=== PATIENT | male | born 1955 | race Caucasian/White ===

== ENCOUNTER 2017-08-06 11:28 | Outpatient (CLI) | payer OTHER | END 2017-08-06 19:50 | disposition home or self-care (01) | LOC: D.OPS 11:28 | DX: D50.9 Iron deficiency anemia, unspecified (principal); C22.0 Liver cell carcinoma ==

== ENCOUNTER 2017-10-21 11:13 | Day surgery (SDC) | payer OTHER ==
[~2017-10-21] VITALS: Ht 170.2 cm; Wt 59.1 kg
--- NOTE | ~2017-10-21 | OP ---
PATIENT NAME: JEREMY BURRIS MEDICAL RECORD: [id number] :55 [facility] AD[facility] DATE: SURGEON: CHEMO GIRON DO DATE OF OPERATION: 10/21/2017 PROCEDURE: EGD with biopsy and colonoscopy with polypectomy. INDICATIONS FOR PROCEDURE: Anemia, melena, epigastric pain, heartburn, liver cell carcinoma, abnormal weight loss. SCOPE: Olympus video gastroscope and pediatric colonoscope. MEDICATIONS: Propofol 500 mg IV per anesthesia. WITHDRAWAL TIME: On colonoscopy was 11 minutes. ESTIMATED BLOOD LOSS: Minimal. COMPLICATIONS: None. FINDINGS: Informed consent was given. The patient was made comfortable with the above medication. After reaching an adequate level of sedation by slow IV push, the patient was placed on his left side. The Olympus video gastroscope was placed through the mouth under direct visualization and advanced with ease to the second portion of the duodenum. The upper third of the esophagus appeared normal. In the middle and distal thirds of the esophagus, there were grade III varices without bleeding stigmata. At the GE junction, there was evidence of LA class C, reflux-induced esophagitis. The endoscope was advanced beyond the GE junction into the stomach and retroflexed to view the cardia and fundus. From this view, it could be seen that the patient also had gastric varices. These were not in continuation with the esophageal varices present. Throughout the entire stomach, there was evidence of gastritis characterized by granularity, erythema, and friability. There was portal hypertensive gastropathy of a moderate degree present. A couple of cold forceps biopsies were taken to submit for histology and to rule out H. pylori. The endoscope was advanced beyond the pylorus into the duodenum which appeared normal down to the second portion. The endoscope was then withdrawn from the patient. The patient was turned at this point and a digital rectal examination was performed. It was a normal evaluation. The endoscope was then advanced under direct visualization through the rectum to the cecum with visualization of the appendiceal orifice and ileocecal valve. There was a single polyp located in the descending colon which was removed in 1 piece using hot forceps. The remainder of the mucosa appeared normal. In the rectum, there was prominent vessel consistent with rectal varices and hemorrhoids. Retroflexion was performed and did reveal grade I internal hemorrhoids without active bleeding. The endoscope was then withdrawn from the patient. The patient tolerated the procedure well and there were no complications. IMPRESSION: 1. Grade III esophageal varices without bleeding stigmata. 2. LA class C, reflux-induced esophagitis. 3. Gastric varices. 4. Portal hypertensive gastropathy. 5. Gastritis. 6. Few superficial gastric ulcers. OPERATIVE REPORT [id number] JEREMY BURRIS 7. Single polyp located in the descending colon, removed with hot forceps. 8. Prominent rectal vessels related to portal hypertension and internal hemorrhoids. PLAN AND RECOMMENDATIONS: 1. Discharge home when recovery parameters are met. 2. Continue current diet. 3. Continue current medications. 4. Start pantoprazole 40 mg or equivalent PPI daily times 6 weeks, then consider continuing at a dose of 20 mg daily. 5. Based on the esophageal, gastric, and rectal varices visualized on today's examination, I would recommend an evaluation for TIPS placement. A discussion was had with the patient prior to the procedure regarding esophageal variceal banding. He prefers not to have these varices banded unless they are absolutely necessary. My recommendation would be to consider a TIPS procedure and if this cannot be accomplished, we will bring the patient back within 4 weeks and start the process of banding his esophageal varices. That being said, I cannot address his gastric varices and this would likely require interventional radiology evaluation and treatment as well. For this reason, his portal hypertension could be improved and his varices decompressed with a TIPS. 6. No further screening colonoscopies are necessary. TRANSINT:[id number] Voice Confirmation ID: [id number] DOCUMENT ID: [id number] CHEMO GIRON DO at 1652 CC: [id number] DICTATION DATE: 10/21/17 1530 BUSINESS MGR: 10/21/17 1613 [facility] 10/21/17 [place] [address] [place] [id number]
[~2017-10-21 11:13] MED LIST: ACETAMINOPHEN325 MG PO; ASPIRIN81 MG PO; COREG6.25 MG PO; HYDRALAZINE HCL25 MG PO; IBUPROFEN200 MG PO; METOPROLOL TAR100 M1 PO; NORVASC10 MG PO; PRAVACHOL20 MG PO
[2017-10-21 12:51] LABS: BASOPHILS 0.3 % (0-2); EOSINOPHILS 2.6 % (0-7); HEMATOCRIT 34.2 % (42.0-54.0); LYMPHOCYTES 36.6 % (15-50); MCH 25.6 pg (26.0-34.0); MCHC 32.2 g/dL (31.0-37.0); MCV 79.5 fL (80.0-100.0); MEAN PLATELET VOLUME 9.1 fL (7.4-10.4); MONOCYTES 17.1 % (2-11); NEUTROPHILS 43.4 % (40-80); PLATELET COUNT 68 10x3/uL (130-400); RDW 19.2 % (11.5-14.5); WBC 3.9 10x3/uL (4.8-10.8)
[2017-10-21 12:53] LABS: APTT 32.9 SECONDS (22.8-39.4); INR 1.17 (0.85-1.17); PROTIME 14.5 SECONDS (11.6-15.0)
[2017-10-21 12:58] LABS: ALBUMIN 3.1 g/dL (3.4-5.0); ALT (SGPT) 43 U/L (10-68); BILIRUBIN - TOTAL 1.12 mg/dL (0.2-1.3); CALC OSMOLALITY 274 mosm/kg (275-300); CALCIUM 8.8 mg/dL (8.5-10.1); CARBON DIOXIDE 22.5 mmol/L (21.0-32.0); CHLORIDE - SERUM 105 mmol/L (98-107); CREATININE - SERUM 0.8 mg/dL (0.6-1.3); GLUCOSE 77 mg/dL (74-106); PROTEIN - SERUM 7.6 g/dL (6.4-8.2); SODIUM 138 mmol/L (136-145); UREA NITROGEN 13 mg/dL (7-18); eGFR NON AFRICAN AMERICAN > 90 mL/min (90-120)
[2017-10-21 13:05] VITALS: BP 149/74; Ht 170.2 cm; Wt 59.1 kg
[2017-10-21 13:28] LABS: ALKALINE PHOSPHATASE 106 U/L (46-116)
== END 2017-10-21 16:30 | disposition home or self-care (01) ==
LOC: D.OPS 11:13
PROVIDERS: Anesthesiology
DX: K76.6 Portal hypertension (principal); K31.89 Other diseases of stomach and duodenum; I85.10 Secondary esophageal varices without bleeding; K21.0 Gastro-esophageal reflux disease with esophagitis; I86.4 Gastric varices; K29.70 Gastritis, unspecified, without bleeding; K25.9 Gastric ulcer, unspecified as acute or chronic, without hemorrhage or perforation; K63.5 Polyp of colon; K64.8 Other hemorrhoids; Z01.812 Encounter for preprocedural laboratory examination

== ENCOUNTER 2017-11-16 04:39 | Inpatient (IN) | payer MEDICARE, OTHER ==
[~2017-11-16] VITALS: Ht 170.2 cm; Wt 60.0 kg
[2017-11-16] VITALS (17 sets, daily range): BP systolic 120–185; BP diastolic 57–91; BMI 20.4
--- NOTE | ~2017-11-16 | HEMODYNAMI ---
PATIENT:JEREMY BURRIS MEDICAL RECORD: [id number] : 55 LOCATION:[facility] D.2219 ADMISSION DATE: 11/16/17 Generatedon:11/18/201715:23 Patient name: JEREMY BURRIS Patient #: [id number] SSN: DO B: 1955 Date of study: 11/18/2017 Page: Of Hemodynamic Procedure Report Patient Data Patient Demographics Procedure consent was obtained First Name: JEREMY Gender: Male Last Name: DAYTON : 1955 [facility] Initial: CHIARA Age: 62 year(s) Patient #: [id number] Race: Unknown Additional ID: [id number] Contact details [address]: [address] [place] [address] State: [place] City: [place] Zip code: [address] Past Medical History Allergies Allergen Reaction Date Comments Reported Codeine 11/18/2017 Sulfa drugs 11/18/2017 Admission Admission Data Admission Date: 11/16/2017 Admission Time: 10:30 Room #: D.2219 Height (in.): 67 BSA: 1.68 (m2) Height (cm.): 170.18 BMI: 20.2 (kg/m2) Weight (lbs.): 129 Weight (kg.): 58.51 Procedure Procedure Types Cath Procedure Peripheral Cath Diagnostic Procedure Cath Peripheral Liver TIPSS Procedure Description Procedure Date Procedure Date: 11/18/2017 Procedure Start Time: 14:03 Procedure Staff Name Function Brendon Donovan MD Performing Physician Zeny Vincent RT [employer] Zeny Vincent RT Monitor Mario Crabtree CRNA Additional personnel Elisha Garcia RN Nurse Mitzi Bergeron RN Nurse Jyoti Horowitz RT Scrub Procedure Data Cath Procedure Fluoroscopy Diagnostic fluoroscopy Total fluoroscopy Time: time: 13.8 min 13.8 min Diagnostic fluoroscopy Total fluoroscopy dose: 492 dose: 492 mGy mGy Contrast Material Contrast Material Type Amount (ml) Isovue 300 60 Diagnostic catheters Device Type Used For End Catheter Placement DIAGNOSTIC MPA-2 5Fr catheter ([id number]) Merit UHF Pigtail VESSEL SIZING 5Fr 65CM catheter ([id number]) Procedure Medications Medication Administration Route Dosage Ancef (1Gm/50ml NS) I.V.P.B 1 g Lidocaine 1% added to field 20 Heparin Flush Bag added to field 3 bags (1000units/500ml NS) Hemodynamics Rest BSA: 1.68 (m2) O2 Consumption: Estimated: 198.25 (ml/min) O2 Consumption indexed : Estimated:118.01 (ml/min/m) Heart Rate: 72 (bpm) Pressure Samples Time Site Value (mmHg) Purpose Heart Use Rate(bpm) 14:11 RA 5/4(4) Snapshot 53 14:17 Hepatic 4/4(3) Snapshot 54 14:22 Hepatic (12) Snapshot 54 14:45 Portal (14) Snapshot 64 15:07 Portal 04/30(10) Snapshot 62 15:09 RA /(9) Snapshot 61 Snapshots Pre Cath Intra NCS Post Cath Vital Signs Time Heart Resp SPO2 etCO2 NIBP (mmHg) Rhythm Pain Sedation Rate (ipm) (%) (mmHg) Status Level (bpm) 13:41:09 71 20 100 0 Measuring NSR 0 (11) 10(A) , No pain 13:42:33 71 15 100 0 Time NSR 0 (11) 10(A) Exceeded , No pain 13:47:33 63 0 100 0 Measuring NSR 0 (11) 10(A) , No pain 13:48:57 64 11 100 0 Time NSR 0 (11) 10(A) Exceeded , No pain 13:53:56 59 10 100 0 Measuring NSR 0 (11) 10(A) , No pain 13:55:19 58 9 100 0 Time NSR 0 (11) 10(A) Exceeded , No pain 14:00:18 54 10 100 0 Measuring NSR 0 (11) 10(A) , No pain 14:01:43 55 9 100 0 Time NSR 0 (11) 10(A) Exceeded , No pain 14:06:41 54 10 100 0 Measuring NSR 0 (11) 10(A) , No pain 14:08:05 53 10 100 0 Time NSR 0 (11) 10(A) Exceeded , No pain 14:13:05 52 10 100 0 Measuring NSR 0 (11) 10(A) , No pain 14:14:29 53 8 100 0 Time NSR 0 (11) 10(A) Exceeded , No pain 14:16:21 52 9 100 0 65/43(56) NSR 0 (11) 10(A) , No pain 14:20:13 53 9 100 0 65/46(54) NSR 0 (11) 10(A) , No pain 14:24:04 53 10 100 0 73/49(61) NSR 0 (11) 10(A) , No pain 14:28:00 56 9 100 0 75/45(63) NSR 0 (11) 10(A) , No pain 14:32:36 68 7 100 0 95/73(85) NSR 0 (11) 10(A) , No pain 14:36:34 65 10 100 0 79/58(68) NSR 0 (11) 10(A) , No pain 14:40:23 64 10 100 0 88/67(80) NSR 0 (11) 10(A) , No pain 14:44:54 68 9 100 0 119/95(105) NSR 0 (11) 10(A) , No pain 14:49:53 56 9 100 0 Measuring NSR 0 (11) 10(A) , No pain 14:50:09 57 10 100 0 67/49(58) NSR 0 (11) 10(A) , No pain 14:55:08 62 10 100 0 Measuring NSR 0 (11) 10(A) , No pain 14:56:01 62 10 100 0 82/63(75) NSR 0 (11) 10(A) , No pain 15:01:00 60 13 100 0 67/51(60) NSR 0 (11) 10(A) , No pain 15:05:31 62 13 100 0 93/70(82) NSR 0 (11) 10(A) , No pain 15:10:30 60 10 100 0 Measuring NSR 0 (11) 10(A) , No pain 15:10:32 60 9 100 0 70/50(63) NSR 0 (11) 10(A) , No pain 15:15:31 73 10 100 0 Measuring NSR 0 (11) 10(A) , No pain 15:16:34 75 9 100 0 Disturbed NSR 0 (11) 10(A) , No pain 15:20:50 82 15 100 0 88/62(77) NSR 0 (11) 10(A) , No pain Medications Time Medication Route Dose Verified Delivered Reason Notes Effe ctiveness by by 14:17:03 Ancef (1Gm/50ml I.V.P.B 1 g Brendon Tello NS) Venus Garcia RN, MD 14:17:57 Lidocaine 1% added 20ml Brendon Olivas used for to vial Venus Donovan procedure field MD BATES 14:18:16 Heparin Flush added 3 Brendon Olivas used for Bag to bags Venus Donovan procedure (1000units/500ml field MD BATES NS) Procedure Log Time Note 13:00:57 Patient Weight : 129 lbs 13:01:07 Patient Height : 67 inches 13:13:49 Use device set IR Diagnostic 13:13:52 Tegaderm 4 x 4 (1626W) opened to sterile field. 13:13:53 Sterile Angiographic Pack opened to sterile field. 13:13:54 Bag Decanter (2002S) opened to sterile field. 13:13:55 ACIST Manifold (58533) opened to sterile field. 13:13:57 ACIST Hand Control (77714) opened to sterile field. 13:13:58 ACIST Syringe (43524) opened to sterile field. 13:35:34 Time tracking: Regular hours (M-F 7:00 - 5:00) 13:35:49 Plan of Care:Hemodynamics will remain stable., Cardiac rhythm will remain stable., Comfort level will be maintained., Respiratory function will remain adequate., Patient/ family verbilizes understanding of procedure., Procedure tolerated without complication., Recovers from procedure without complications.. 13:35:59 Patient received from Med/Surg to IR Alert and oriented. Tansferred to table in Supine position. 13:36:07 Warm blankets applied, and trace hugger turned on for patient comfort. 13:36:08 Correct patient and procedure confirmed by team. 13:36:10 Signed procedure consent form obtained from patient. 13:36:21 ECG and BP/O2 sat monitors applied to patient. 13:39:21 Vital chart was started 13:39:22 Baseline sample Acquired. 13:39:25 Full Disclosure recording started 13:39:29 - 13:39:34 H&P Date Dictated: 11/18/2017 Within 30 days and on chart.. 13:39:37 Pre-procedure instructions explained to patient. 13:39:38 Pre-op teaching completed and patient verbalized understanding. 13:39:42 Family in waiting room. 13:39:45 Patient NPO since Midnight. 13:39:55 Patient allergic to Codeine 13:40:03 Patient allergic to Sulfa drugs 13:40:07 ----Pre-sedation anethsthesia assessment.----see anesthesia notes for assessment answers and monitoring of patient duriing procedure 13:41:13 IV patent on arrival in left forearm with D5/.45%NaCl at KVO. 13:41:21 Right neck area was prepped with chlora-prep and draped in sterile fashion 13:41:24 - 13:48:56 BENTSON 145cm wire (L66579) opened to sterile field. 13:48:57 SHEATH 5FR [place] (SUR122) opened to sterile field. 13:49:23 Micropuncture VSI 4FR kit opened to sterile field. 13:49:48 TUBING Contrast Injection High Pressure (MOF160E) opened to sterile field. 13:49:49 TUBING Contrast Injection High Pressure (HNR698S) opened to sterile field. 13:50:12 KIT, TRANSJUGULAR LIVER ACCESS R opened to sterile field. 13:58:11 Physician arrived 14:02:17 STOPCOCK 3-Way Large Bore (E64665) opened to sterile field. 14:02:18 STOPCOCK 3-Way Large Bore (H35783) opened to sterile field. 14:02:55 A DIAGNOSTIC MPA-2 5Fr catheter ([id number]) was advanced over the wire an d used for . 14:02:59 --------ALL STOP TIME OUT------ 14:03:00 Final Timeout: patient, procedure, and site verified with staff and physician. All members of the team are in agreement. 14:03:15 Procedure started. 14:03:23 Local anesthetic to right IJ vein with Lidocaine 1% by Brendon Donovan MD.INITIAL ACCESS ONLY 14:04:08 Venous access obtained using ultrasound guidance. 14:08:08 case with anesthesia- vitals per anesthesia machine. Orville and Giana here for procedure 14:09:56 Zero performed for pressure channel P1 14:10:06 Zero performed for pressure channel P1 14:10:21 Zero performed for pressure channel P1 14:10:34 Zero performed for pressure channel P1 14:16:42 Zero performed for pressure channel P1 14:17:03 Ancef (1Gm/50ml NS) 1 g I.V.P.B was administered by Elisha Garcia RN; ; 14:17:57 Lidocaine 1% 20ml vial added to field was administered by Brendon ascencio MD; used for procedure; 14:18:16 Heparin Flush Bag (1000units/500ml NS) 3 bags added to field was administered by Brendon Donovan MD; used for procedure; 14:19:37 WARREN 260 wire (Q83716) opened to sterile field. 14:19:38 GLIDE CATHETER 5FR ANGLED 65cm (CG507) opened to sterile field. 14:24:41 AMPLATZ Short Taper 260cm wire ([id number]) opened to sterile field. 14:31:22 GLIDE WIRE ANGLE 260cm (EO9785) opened to sterile field. 14:46:28 A [facility] Pigtail VESSEL SIZING 5Fr 65CM catheter ([id number]) was advanced over the wire and used for . 14:46:30 INFLATOR BasixTOUCH (FW7569) opened to sterile field. 14:54:18 Inflate balloon Inflation number: 1 A Evercross 8 x 4 x 135 Balloon ([id number]) was prepped and advanced across the Undefined1, then inflated . 14:56:32 VIATORR 10x6 stent ([id number]) was deployed across Undefined1 . 15:01:47 Inflate balloon Inflation number: 2 A Evercross 10 x 60 x 135 Balloon ([id number]) was prepped and advanced across the Undefined1, then inflated 15:06:42 Zero performed for pressure channel P1 15:08:28 Zero performed for pressure channel P1 15:10:19 Procedure ended.(Physican Out) 15:12:33 Fluoroscopy time 13.80 minutes. 15:12:38 Fluoroscopy dose: 492 mGy 15:12:38 Flurop Dose total: 492 15:13:40 Contrast amount:Isovue 300 60ml. 15:13:47 Procedure and supply charges have been captured, reviewed, submitted an d are correct. 15:21:34 Report given to ICU. 15:23:17 Vital chart was stopped Intervention Summary Intervention Notes Time ActionType Lesion and Equipment Used Action# Pressure Duration Attributes 14:54:18 Inflate Undefined1 Evercross 8 x 4 1 0 00:00 balloon x 135 Balloon ([id number]) 14:56:32 Deploy self Undefined1 VIATORR 10x6 1 expanding stent stent ([id number]) 15:01:47 Inflate Undefined1 Evercross 10 x 2 0 00:00 balloon 40 x 135 Balloon ([id number]) Device Usage Item Name Manufacture Quantity Catalog Number Hospital Part Current M inimal Lot# / Charge Number Stock Stock Serial# Code Tegaderm 4 x 4 3M 1 [id number] [id number] 169504 824611 5 (1626W) Sterile Cardinal 1 [id number] 429730 520180 5 Angiographic Health Pack Bag Decanter Microtek 1 2001S 139797 42549 538717 5 () Medical Inc. ACIST Manifold Acist 1 62784 847727 043392 212168 5 (51042) Medical Systems Inc ACIST Hand Acist 1 71903 172583 911547 354309 5 Control (37765) Medical Systems Inc ACIST Syringe Acist 1 31556 599628 222085 245134 2 0 (90860) Medical Systems Inc BENTSON 145cm Cook Medical 1 T28300 279394 307262 5 [id number] wire (X06144) SHEATH 5FR Terumo 1 LPC979 340378 308793 178179 4 0 [place] (CRB724) Micropuncture VSI VASCULAR 1 7266V 757691 461684 5 VSI 4FR kit SOLUTIONS TUBING Contrast Merit 2 [id number] 098477 941073 438460 5 Injection High Medical Pressure (NDC476R) KIT, Cook Medical 1 Z22575 622345 376434 5 [id number] TRANSJUGULAR LIVER ACCESS R STOPCOCK 3-Way [facility] 2 Z09773 954838 2053 179074 5 [id number] Large Bore 7788677 (P19617) DIAGNOSTIC Cardinal 1 [id number] 272114 403210 198436 5 MPA-2 5Fr Health catheter ([id number]) WARREN 260 wire Cook Medical 1 R27625 783474 41532 414074 5 8941862 (E98083) GLIDE CATHETER Terumo 1 CG507 548062 444030 5 5FR ANGLED 65cm (CG507) AMPLATZ Short [place] 1 [id number] 110634 893370 994984 5 Taper 260cm Scientific wire ([id number]) GLIDE WIRE Terumo 1 IG5849 484476 564765 536740 5 ANGLE 260cm (CJ0238) Merit UHF Merit 1 [id number] 436670 560325 5 Pigtail VESSEL Medical SIZING 5Fr 65CM catheter ([id number]) INFLATOR Merit 1 VS7959 787965 968471 266913 5 [employer] (KJ8889) Evercross 8 x 4 Medtronic 1 [id number] 423944 335389 766224 5 x 135 Balloon ([id number]) VIATORR 10x6 [employer] 1 [id number] 276306 996819 198825 5 [id number] stent ([id number]) Evercross 10 x Medtronic 1 [id number] 770489 748505 285116 5 40 x 135 Balloon ([id number]) Signature Audit [place] Stage Time Signature Unsigned Intra-Procedure 11/18/2017 Zeny Vincent 3:23:12 PM RT(R) Signatures Monitor : Zeny Vincent RT Signature : Date : Time : [facility] [address] [place] [address]
--- NOTE | ~2017-11-16 | HP ---
PATIENT: JEREMY BAUER MEDICAL RECORD: [id number] ACCOUNT: [id number] LOCATION:[facility] D.2313 : 55 ADMISSION DATE: 11/16/17 HISTORY AND PHYSICAL EXAMINATION HISTORY OF PRESENT ILLNESS: Mr. Bauer is a 62-year-old white male who lives in [place] that presents with black tarry stools for the last 4 days and coffee-ground emesis for the last day and a half. He has a prior history of upper GI bleed, necessitating ICU stay several years ago. At that time, he was also diagnosed with hep C, had a liver biopsy and told that he had cirrhosis. He has been a heavy drinker in the past and still drinks on intermittent basis. He also is a smoker. He was apparently seen at the [place] ER this morning that requested a transfer, which was accepted by Dr. Menchaca for direct admission to the ICU; however, they left the patient come here by private vehicle and he did not show up till 11 o'clock. His hemoglobin is now 7.2. He is not in any distress at this time fortunately. He is admitted to the ICU. We are going to transfuse him and get a GI consult. A Protonix drip has been ordered. PAST MEDICAL HISTORY: Significant for known hepatitis C, COPD, upper GI bleed, coronary artery disease with AR in 2016, hypertension, hyperlipidemia. ALLERGIES: CODEINE AND SULFA. HOME MEDICATIONS: Include metoprolol and hydralazine. FAMILY HISTORY: Noncontributory. SOCIAL HISTORY: The patient is . He does smoke on a daily basis and drinks. REVIEW OF SYSTEMS: He has had some weight loss recently. He denies any chest pain. He denies any shortness of breath. He does complain of fatigue. He complains of coffee-ground emesis for the last day and a half and dark tarry stools for the last 4 days. He denies much in the way of some abdominal pain other than some indigestion. PHYSICAL EXAMINATION: GENERAL: He is no distress, rather pale in appearance, appears chronically ill. HEENT: Sclerae nonicteric. Conjunctivae are pale. HEART: Regular. LUNGS: Diminished breath sounds. ABDOMEN: Soft. EXTREMITIES: Without edema. IMPRESSION: 1. Suspect upper gastrointestinal bleed. 2. Recent colonoscopy per Dr. Ortiz 3 weeks ago. 3. Hepatitis C. 4. Cirrhosis. 5. Chronic thrombocytopenia. 6. Coronary artery disease with previous myocardial infarction. PLAN: Admit to ICU. Type and cross 2 units and transfuse. Make n.p.o. for now. Protonix drip. Continue metoprolol. We will hold hydralazine for now. GI consult, await their recommendations. HISTORY AND PHYSICAL [id number] JEREMY BAUER CHIARA TRANSINT:[id number] Voice Confirmation ID: [id number] DOCUMENT ID: [id number] GENARO RAMACHANDRAN DO at 1750 CC: [id number] DICTATION DATE: 11/16/17 1208 CARDIOLOGY PHYSICIAN: 11/16/17 1318 ADM IN [facility] [address] [place] [address]
[2017-11-16 11:28] LABS: BASOPHILS 0.5 % (0-2); EOSINOPHILS 3.1 % (0-7); IMMATURE GRANULOCYTES 0.3 % (0-5); LYMPHOCYTES 30.3 % (15-50); MCH 25.1 pg (26.0-34.0); MCHC 31.8 g/dL (31.0-37.0); MCV 78.9 fL (80.0-100.0); MEAN PLATELET VOLUME 9.8 fL (7.4-10.4); MONOCYTES 15.9 % (2-11); NEUTROPHILS 49.9 % (40-80); PLATELET COUNT 80 10x3/uL (130-400); RBC 2.79 10x6/uL (4.20-6.10); RDW 19.8 % (11.5-14.5); WBC 3.8 10x3/uL (4.8-10.8)
[2017-11-16 11:36] LABS: APTT 29.7 SECONDS (22.8-39.4); INR 1.24 (0.85-1.17); PROTIME 15.2 SECONDS (11.6-15.0)
[2017-11-16 11:43] LABS: ALBUMIN 2.7 g/dL (3.4-5.0); ALKALINE PHOSPHATASE 69 U/L (46-116); ALT (SGPT) 50 U/L (10-68); CALC OSMOLALITY 284 mosm/kg (275-300); CARBON DIOXIDE 26.1 mmol/L (21.0-32.0); CHLORIDE - SERUM 107 mmol/L (98-107); GLUCOSE 115 mg/dL (74-106); POTASSIUM - SERUM 3.7 mmol/L (3.5-5.1); PROTEIN - SERUM 6.3 g/dL (6.4-8.2); SODIUM 139 mmol/L (136-145); UREA NITROGEN 29 mg/dL (7-18); eGFR NON AFRICAN AMERICAN 80 mL/min (90-120)
[2017-11-16 17:49] LABS: HEMATOCRIT 20.7 % (42.0-54.0)
[2017-11-16 17:50] LABS: HEMOGLOBIN 6.7 g/dL (13.5-17.5)
[2017-11-16 18:20] LABS: HEMATOCRIT 29.5 % (42.0-54.0); HEMOGLOBIN 9.8 g/dL (13.5-17.5)
[2017-11-17] VITALS (15 sets, daily range): BP systolic 113–184; BP diastolic 60–91; Ht 170.2 cm; Wt 60.0 kg
[2017-11-17 04:59] LABS: BASOPHILS 0.3 % (0-2); EOSINOPHILS 3.5 % (0-7); HEMATOCRIT 27.5 % (42.0-54.0); HEMOGLOBIN 8.9 g/dL (13.5-17.5); IMMATURE GRANULOCYTES 0.3 % (0-5); LYMPHOCYTES 26.4 % (15-50); MCH 25.8 pg (26.0-34.0); MCHC 32.4 g/dL (31.0-37.0); MCV 79.7 fL (80.0-100.0); MEAN PLATELET VOLUME 9.9 fL (7.4-10.4); MONOCYTES 14.9 % (2-11); NEUTROPHILS 54.6 % (40-80); PLATELET COUNT 67 10x3/uL (130-400); RDW 18.8 % (11.5-14.5); WBC 3.7 10x3/uL (4.8-10.8)
[2017-11-17 05:05] LABS: RBC 3.45 10x6/uL (4.20-6.10)
[2017-11-17 05:07] LABS: INR 1.17 (0.85-1.17); PROTIME 14.5 SECONDS (11.6-15.0)
[2017-11-17 05:18] LABS: ALBUMIN 2.6 g/dL (3.4-5.0); ALKALINE PHOSPHATASE 66 U/L (46-116); ALT (SGPT) 49 U/L (10-68); AMYLASE - SERUM 82 U/L (25-115); BILIRUBIN - TOTAL 1.02 mg/dL (0.2-1.3); CALC OSMOLALITY 283 mosm/kg (275-300); CARBON DIOXIDE 23.4 mmol/L (21.0-32.0); CHLORIDE - SERUM 109 mmol/L (98-107); CREATININE - SERUM 0.9 mg/dL (0.6-1.3); GLUCOSE 88 mg/dL (74-106); LIPASE 178 U/L (73-393); MAGNESIUM - SERUM 1.6 mg/dL (1.8-2.4); POTASSIUM - SERUM 3.9 mmol/L (3.5-5.1); PROTEIN - SERUM 5.9 g/dL (6.4-8.2); SODIUM 142 mmol/L (136-145); UREA NITROGEN 17 mg/dL (7-18); eGFR NON AFRICAN AMERICAN > 90 mL/min (90-120)
[2017-11-17 08:33] LABS: HEMATOCRIT 28.8 % (42.0-54.0); HEMOGLOBIN 9.4 g/dL (13.5-17.5)
[2017-11-17 16:31] LABS: HEMATOCRIT 28.1 % (42.0-54.0); HEMOGLOBIN 9.2 g/dL (13.5-17.5)
[2017-11-18] VITALS (11 sets, daily range): BP systolic 137–178; BP diastolic 68–87
[2017-11-18 06:31] LABS: BASOPHILS 0.2 % (0-2); HEMOGLOBIN 9.1 g/dL (13.5-17.5); LYMPHOCYTES 26.9 % (15-50); MCH 26.4 pg (26.0-34.0); MCHC 32.5 g/dL (31.0-37.0); MCV 81.2 fL (80.0-100.0); MEAN PLATELET VOLUME 9.6 fL (7.4-10.4); MONOCYTES 12.7 % (2-11); NEUTROPHILS 57.2 % (40-80); PLATELET COUNT 62 10x3/uL (130-400); RBC 3.45 10x6/uL (4.20-6.10); RDW 19.4 % (11.5-14.5)
[2017-11-18 06:34] LABS: INR 1.25 (0.85-1.17); PROTIME 15.2 SECONDS (11.6-15.0)
[2017-11-18 06:47] LABS: CALC OSMOLALITY 281 mosm/kg (275-300); CALCIUM 7.9 mg/dL (8.5-10.1); CARBON DIOXIDE 22.7 mmol/L (21.0-32.0); CHLORIDE - SERUM 111 mmol/L (98-107); CREATININE - SERUM 0.8 mg/dL (0.6-1.3); GLUCOSE 102 mg/dL (74-106); POTASSIUM - SERUM 3.6 mmol/L (3.5-5.1); SODIUM 142 mmol/L (136-145); eGFR NON AFRICAN AMERICAN > 90 mL/min (90-120)
[2017-11-18 06:48] LABS: UREA NITROGEN 11 mg/dL (7-18)
[2017-11-18 08:03] LABS: PLATELET ESTIMATE DECREASED
[2017-11-19] VITALS (24 sets, daily range): BP systolic 111–201; BP diastolic 56–105
[2017-11-19 05:14] LABS: ALBUMIN 2.7 g/dL (3.4-5.0); BILIRUBIN - DIRECT 0.53 mg/dL (0.00-0.30); BILIRUBIN - INDIRECT 0.89 mg/dL (0.00-1.00); BILIRUBIN - TOTAL 1.42 mg/dL (0.2-1.3); PROTEIN - SERUM 6.4 g/dL (6.4-8.2)
[2017-11-19 06:23] LABS: BASOPHILS 0.4 % (0-2); EOSINOPHILS 0.7 % (0-7); HEMATOCRIT 29.9 % (42.0-54.0); HEMOGLOBIN 9.7 g/dL (13.5-17.5); IMMATURE GRANULOCYTES 0.2 % (0-5); LYMPHOCYTES 19.5 % (15-50); MCH 26.4 pg (26.0-34.0); MCHC 32.4 g/dL (31.0-37.0); MCV 81.5 fL (80.0-100.0); MEAN PLATELET VOLUME 9.5 fL (7.4-10.4); MONOCYTES 10.9 % (2-11); NEUTROPHILS 68.3 % (40-80); PLATELET COUNT 64 10x3/uL (130-400); RBC 3.67 10x6/uL (4.20-6.10); RDW 19.4 % (11.5-14.5); WBC 8.1 10x3/uL (4.8-10.8)
[2017-11-19 07:24] LABS: CALC OSMOLALITY 274 mosm/kg (275-300); CALCIUM 7.6 mg/dL (8.5-10.1); CARBON DIOXIDE 21.9 mmol/L (21.0-32.0); CHLORIDE - SERUM 104 mmol/L (98-107); CREATININE - SERUM 0.9 mg/dL (0.6-1.3); GLUCOSE 98 mg/dL (74-106); POTASSIUM - SERUM 3.8 mmol/L (3.5-5.1); SODIUM 138 mmol/L (136-145); UREA NITROGEN 9 mg/dL (7-18); eGFR NON AFRICAN AMERICAN > 90 mL/min (90-120)
[2017-11-20] VITALS (14 sets, daily range): BP systolic 106–175; BP diastolic 49–93
[2017-11-20 02:52] LABS: BASOPHILS 0.3 % (0-2); EOSINOPHILS 3.5 % (0-7); HEMATOCRIT 30.3 % (42.0-54.0); HEMOGLOBIN 9.9 g/dL (13.5-17.5); IMMATURE GRANULOCYTES 0.3 % (0-5); LYMPHOCYTES 23.2 % (15-50); MCH 26.1 pg (26.0-34.0); MCHC 32.7 g/dL (31.0-37.0); MCV 79.7 fL (80.0-100.0); MEAN PLATELET VOLUME 8.9 fL (7.4-10.4); MONOCYTES 14.7 % (2-11); PLATELET COUNT 74 10x3/uL (130-400); RDW 19.1 % (11.5-14.5); WBC 7.7 10x3/uL (4.8-10.8)
[2017-11-20 03:09] LABS: ALBUMIN 2.4 g/dL (3.4-5.0); ALKALINE PHOSPHATASE 90 U/L (46-116); ALT (SGPT) 164 U/L (10-68); BILIRUBIN - TOTAL 1.25 mg/dL (0.2-1.3); CALC OSMOLALITY 276 mosm/kg (275-300); CALCIUM 7.4 mg/dL (8.5-10.1); CHLORIDE - SERUM 106 mmol/L (98-107); CREATININE - SERUM 0.8 mg/dL (0.6-1.3); GLUCOSE 96 mg/dL (74-106); POTASSIUM - SERUM 3.1 mmol/L (3.5-5.1); PROTEIN - SERUM 5.6 g/dL (6.4-8.2); SODIUM 140 mmol/L (136-145); UREA NITROGEN 7 mg/dL (7-18); eGFR NON AFRICAN AMERICAN > 90 mL/min (90-120)
[2017-11-21 00:08] VITALS: BP 108/49
[2017-11-21 04:19] VITALS: BP 116/62
[2017-11-21 06:20] LABS: INR 1.45 (0.85-1.17); PROTIME 17.2 SECONDS (11.6-15.0)
[2017-11-21 06:34] LABS: ALBUMIN 2.4 g/dL (3.4-5.0); ALKALINE PHOSPHATASE 105 U/L (46-116); ALT (SGPT) 187 U/L (10-68); CALC OSMOLALITY 278 mosm/kg (275-300); CALCIUM 7.7 mg/dL (8.5-10.1); CARBON DIOXIDE 22.8 mmol/L (21.0-32.0); CHLORIDE - SERUM 109 mmol/L (98-107); CREATININE - SERUM 0.8 mg/dL (0.6-1.3); GLUCOSE 91 mg/dL (74-106); MAGNESIUM - SERUM 1.6 mg/dL (1.8-2.4); POTASSIUM - SERUM 3.1 mmol/L (3.5-5.1); PROTEIN - SERUM 5.6 g/dL (6.4-8.2); SODIUM 141 mmol/L (136-145); UREA NITROGEN 7 mg/dL (7-18); eGFR NON AFRICAN AMERICAN > 90 mL/min (90-120)
[2017-11-21 11:48] VITALS: BP 147/68
[2017-11-21 15:44] LABS: BASOPHILS 0.4 % (0-2); EOSINOPHILS 5.5 % (0-7); HEMATOCRIT 29.9 % (42.0-54.0); HEMOGLOBIN 9.6 g/dL (13.5-17.5); IMMATURE GRANULOCYTES 0.3 % (0-5); LYMPHOCYTES 26.8 % (15-50); MCHC 32.1 g/dL (31.0-37.0); MEAN PLATELET VOLUME 9.2 fL (7.4-10.4); MONOCYTES 18.6 % (2-11); NEUTROPHILS 48.4 % (40-80); PLATELET COUNT 79 10x3/uL (130-400); RBC 3.69 10x6/uL (4.20-6.10); WBC 6.7 10x3/uL (4.8-10.8)
[2017-11-21 16:35] VITALS: BP 91/62
[2017-11-21 20:36] VITALS: BP 134/65
[2017-11-21 23:39] VITALS: BP 142/72
[2017-11-22 03:58] VITALS: BP 136/95
[2017-11-22 06:32] LABS: BASOPHILS 0.4 % (0-2); EOSINOPHILS 4.7 % (0-7); HEMATOCRIT 28.3 % (42.0-54.0); HEMOGLOBIN 9.2 g/dL (13.5-17.5); IMMATURE GRANULOCYTES 0.1 % (0-5); LYMPHOCYTES 22.8 % (15-50); MCHC 32.5 g/dL (31.0-37.0); MCV 79.9 fL (80.0-100.0); MEAN PLATELET VOLUME 8.8 fL (7.4-10.4); MONOCYTES 16.9 % (2-11); NEUTROPHILS 55.1 % (40-80); PLATELET COUNT 84 10x3/uL (130-400); RBC 3.54 10x6/uL (4.20-6.10); RDW 19.9 % (11.5-14.5); WBC 7.9 10x3/uL (4.8-10.8)
[2017-11-22 06:38] LABS: ALBUMIN 2.2 g/dL (3.4-5.0); ALKALINE PHOSPHATASE 110 U/L (46-116); CALC OSMOLALITY 280 mosm/kg (275-300); CALCIUM 7.3 mg/dL (8.5-10.1); CHLORIDE - SERUM 111 mmol/L (98-107); CREATININE - SERUM 0.8 mg/dL (0.6-1.3); GLUCOSE 101 mg/dL (74-106); POTASSIUM - SERUM 3.2 mmol/L (3.5-5.1); PROTEIN - SERUM 5.2 g/dL (6.4-8.2); SODIUM 142 mmol/L (136-145); UREA NITROGEN 7 mg/dL (7-18); eGFR NON AFRICAN AMERICAN > 90 mL/min (90-120)
[2017-11-22 06:39] LABS: ALT (SGPT) 134 U/L (10-68)
[2017-11-22 08:27] VITALS: BP 145/70
[2017-11-22 11:34] VITALS: BP 125/56
[2017-11-22] MEDS ORDERED: PROTONIX40 MG PO (13:41)
[2017-11-22] MEDS ORDERED: CHRONULAC30 ML PO (13:41)
[2017-11-22] MEDS ORDERED: XIFAXAN550 MG PO (13:41)
== END 2017-11-22 15:15 | disposition home or self-care (01) | DRG 271 ==
LOC: D.M2 04:39 → D.ICU 10:30 → D.MS 11-17 16:14 → D.ICU 11-18 16:25 → D.MS 11-20 13:34
PROVIDERS: Family Medicine; Internal Medicine Gastroenterology; Radiology Diagnostic Radiology
PROC: 0DJ08ZZ Inspection of Upper Intestinal Tract, Via Natural or Artificial Opening Endoscopic (ICD-10-PCS; principal; 2017-11-16 15:00)
PROC: 06183J4 Bypass Portal Vein to Hepatic Vein with Synthetic Substitute, Percutaneous Approach (ICD-10-PCS; 2017-11-18)
DX: I86.4 Gastric varices (principal); K76.6 Portal hypertension; D62 Acute posthemorrhagic anemia; I85.10 Secondary esophageal varices without bleeding; C22.0 Liver cell carcinoma; I85.00 Esophageal varices without bleeding; K31.89 Other diseases of stomach and duodenum; B18.2 Chronic viral hepatitis C; K70.30 Alcoholic cirrhosis of liver without ascites; J44.9 Chronic obstructive pulmonary disease, unspecified; I25.10 Atherosclerotic heart disease of native coronary artery without angina pectoris; I10 Essential (primary) hypertension; E78.5 Hyperlipidemia, unspecified; D69.59 Other secondary thrombocytopenia

== ENCOUNTER 2017-11-30 15:56 | Inpatient (IN) | payer MEDICARE, OTHER ==
[~2017-11-30] VITALS: Ht 170.2 cm; Wt 59.0 kg
[~2017-11-30 15:56] MED LIST changes: +CHRONULAC30 ML PO; +PROTONIX40 MG PO; +XIFAXAN550 MG PO
[2017-11-30 17:37] LABS: BASOPHILS 0.6 % (0-2); EOSINOPHILS 3.9 % (0-7); HEMATOCRIT 31.9 % (42.0-54.0); HEMOGLOBIN 10.3 g/dL (13.5-17.5); IMMATURE GRANULOCYTES 0.2 % (0-5); LYMPHOCYTES 39.2 % (15-50); MCH 25.6 pg (26.0-34.0); MCHC 32.3 g/dL (31.0-37.0); MCV 79.4 fL (80.0-100.0); MONOCYTES 16.4 % (2-11); NEUTROPHILS 39.7 % (40-80); PLATELET COUNT 112 10x3/uL (130-400); RBC 4.02 10x6/uL (4.20-6.10); RDW 20.7 % (11.5-14.5); WBC 5.4 10x3/uL (4.8-10.8)
[2017-11-30 17:48] LABS: ALBUMIN 2.6 g/dL (3.4-5.0); ALKALINE PHOSPHATASE 123 U/L (46-116); ALT (SGPT) 72 U/L (10-68); CALC OSMOLALITY 284 mosm/kg (275-300); CALCIUM 8.3 mg/dL (8.5-10.1); CARBON DIOXIDE 21.8 mmol/L (21.0-32.0); CHLORIDE - SERUM 112 mmol/L (98-107); CREATININE - SERUM 0.7 mg/dL (0.6-1.3); GLUCOSE 86 mg/dL (74-106); POTASSIUM - SERUM 4.3 mmol/L (3.5-5.1); PROTEIN - SERUM 6.6 g/dL (6.4-8.2); SODIUM 143 mmol/L (136-145); UREA NITROGEN 15 mg/dL (7-18); eGFR NON AFRICAN AMERICAN > 90 mL/min (90-120)
[2017-11-30 20:13] LABS: APTT 39.2 SECONDS (22.8-39.4); INR 1.48 (0.85-1.17); PROTIME 17.4 SECONDS (11.6-15.0)
[2017-11-30 20:42] LABS: HEMOGLOBIN 10.4 g/dL (13.5-17.5)
[2017-12-01 00:18] VITALS: BP 133/65
[2017-12-01 01:28] VITALS: BP 169/75; BMI 20.4
[2017-12-01 04:10] VITALS: BP 142/70
[2017-12-01 05:36] LABS: HEMATOCRIT 26.9 % (42.0-54.0); HEMOGLOBIN 8.5 g/dL (13.5-17.5)
[2017-12-01 08:19] VITALS: BP 122/54
[2017-12-01 09:50] LABS: INR 1.52 (0.85-1.17); PROTIME 17.8 SECONDS (11.6-15.0)
[2017-12-01 09:58] LABS: ALBUMIN 2.2 g/dL (3.4-5.0); ALKALINE PHOSPHATASE 94 U/L (46-116); ALT (SGPT) 63 U/L (10-68); CALC OSMOLALITY 287 mosm/kg (275-300); CALCIUM 7.7 mg/dL (8.5-10.1); CARBON DIOXIDE 22.5 mmol/L (21.0-32.0); CHLORIDE - SERUM 112 mmol/L (98-107); CREATININE - SERUM 0.7 mg/dL (0.6-1.3); GLUCOSE 77 mg/dL (74-106); POTASSIUM - SERUM 3.8 mmol/L (3.5-5.1); PROTEIN - SERUM 5.6 g/dL (6.4-8.2); SODIUM 144 mmol/L (136-145); UREA NITROGEN 17 mg/dL (7-18); eGFR NON AFRICAN AMERICAN > 90 mL/min (90-120)
[2017-12-01 10:03] LABS: BASOPHILS 0.2 % (0-2); EOSINOPHILS 5.8 % (0-7); IMMATURE GRANULOCYTES 0.2 % (0-5); MCH 25.1 pg (26.0-34.0); MCHC 31.1 g/dL (31.0-37.0); MCV 80.8 fL (80.0-100.0); MEAN PLATELET VOLUME 9.2 fL (7.4-10.4); MONOCYTES 16.4 % (2-11); NEUTROPHILS 38.4 % (40-80); PLATELET COUNT 103 10x3/uL (130-400); RBC 3.38 10x6/uL (4.20-6.10); RDW 20.8 % (11.5-14.5); WBC 4.2 10x3/uL (4.8-10.8)
[2017-12-01 12:59] VITALS: BMI 20.3
[2017-12-01 13:23] LABS: HEMATOCRIT 29.3 % (42.0-54.0); HEMOGLOBIN 8.8 g/dL (13.5-17.5)
[2017-12-01 14:39] VITALS: Ht 170.2 cm; Wt 59.0 kg
[2017-12-01 17:29] VITALS: BP 102/67
[2017-12-01 20:00] VITALS: BP 151/57
[2017-12-01 21:06] LABS: HEMATOCRIT 22.2 % (42.0-54.0); HEMOGLOBIN 7.1 g/dL (13.5-17.5)
[2017-12-02] VITALS: BP 107/49
[2017-12-02 04:00] VITALS: BP 148/63
[2017-12-02 07:56] LABS: BASOPHILS 0.7 % (0-2); EOSINOPHILS 4.6 % (0-7); IMMATURE GRANULOCYTES 0.2 % (0-5); LYMPHOCYTES 41.5 % (15-50); MCH 26.9 pg (26.0-34.0); MCHC 33.1 g/dL (31.0-37.0); MCV 81.2 fL (80.0-100.0); MEAN PLATELET VOLUME 8.8 fL (7.4-10.4); MONOCYTES 18.4 % (2-11); NEUTROPHILS 34.6 % (40-80); RBC 3.72 10x6/uL (4.20-6.10); RDW 18.9 % (11.5-14.5); WBC 4.1 10x3/uL (4.8-10.8)
[2017-12-02 08:01] LABS: HEMATOCRIT 30.2 % (42.0-54.0); PLATELET COUNT 80 10x3/uL (130-400)
[2017-12-02 08:24] VITALS: BP 161/68
[2017-12-02 08:33] LABS: ALBUMIN 2.3 g/dL (3.4-5.0); ALKALINE PHOSPHATASE 101 U/L (46-116); ALT (SGPT) 62 U/L (10-68); CALC OSMOLALITY 284 mosm/kg (275-300); CARBON DIOXIDE 20.6 mmol/L (21.0-32.0); CHLORIDE - SERUM 113 mmol/L (98-107); CREATININE - SERUM 0.7 mg/dL (0.6-1.3); GLUCOSE 77 mg/dL (74-106); POTASSIUM - SERUM 3.7 mmol/L (3.5-5.1); PROTEIN - SERUM 5.7 g/dL (6.4-8.2); SODIUM 144 mmol/L (136-145); eGFR NON AFRICAN AMERICAN > 90 mL/min (90-120)
[2017-12-02 08:38] LABS: UREA NITROGEN 11 mg/dL (7-18)
[2017-12-02 12:18] VITALS: BP 157/75
[2017-12-02 16:17] LABS: HEMATOCRIT 26.9 % (42.0-54.0)
[2017-12-02 16:52] VITALS: BP 128/54
[2017-12-02 20:48] VITALS: BP 154/59
[2017-12-03 00:30] LABS: HEMATOCRIT 25.1 % (42.0-54.0); HEMOGLOBIN 8.5 g/dL (13.5-17.5)
[2017-12-03 00:41] VITALS: BP 110/47
[2017-12-03 04:38] VITALS: BP 127/57
[2017-12-03 04:52] LABS: BASOPHILS 0.2 % (0-2); EOSINOPHILS 4.6 % (0-7); HEMATOCRIT 26.4 % (42.0-54.0); HEMOGLOBIN 8.8 g/dL (13.5-17.5); LYMPHOCYTES 38.4 % (15-50); MCHC 33.3 g/dL (31.0-37.0); MEAN PLATELET VOLUME 9.1 fL (7.4-10.4); MONOCYTES 14.3 % (2-11); NEUTROPHILS 42.5 % (40-80); PLATELET COUNT 76 10x3/uL (130-400); RBC 3.26 10x6/uL (4.20-6.10); RDW 19.6 % (11.5-14.5); WBC 4.8 10x3/uL (4.8-10.8)
[2017-12-03 05:52] LABS: ALKALINE PHOSPHATASE 117 U/L (46-116); ALT (SGPT) 52 U/L (10-68); CALC OSMOLALITY 283 mosm/kg (275-300); CALCIUM 7.4 mg/dL (8.5-10.1); CARBON DIOXIDE 23.7 mmol/L (21.0-32.0); CHLORIDE - SERUM 113 mmol/L (98-107); CREATININE - SERUM 0.7 mg/dL (0.6-1.3); GLUCOSE 90 mg/dL (74-106); POTASSIUM - SERUM 3.6 mmol/L (3.5-5.1); SODIUM 143 mmol/L (136-145); UREA NITROGEN 10 mg/dL (7-18); eGFR NON AFRICAN AMERICAN > 90 mL/min (90-120)
[2017-12-03 08:41] VITALS: BP 168/75
[2017-12-03 11:29] VITALS: BP 152/68
[2017-12-03 12:04] LABS: HEMATOCRIT 28.4 % (42.0-54.0); HEMOGLOBIN 9.4 g/dL (13.5-17.5)
[2017-12-03] MEDS ORDERED: PROTONIX40 MG PO (14:56)
[2017-12-03] MEDS ORDERED: CARAFATE1 G/10 ML PO (14:56)
== END 2017-12-03 16:03 | disposition home or self-care (01) | DRG 378 ==
LOC: D.ER 15:56 → D.EDHOLD 20:16 → D.MS 20:16
PROVIDERS: Emergency Medicine; Family Medicine; Internal Medicine Gastroenterology
PROC: 0D568ZZ Destruction of Stomach, Via Natural or Artificial Opening Endoscopic (ICD-10-PCS; 2017-12-01)
PROC: 3E0G8GC Introduction of Other Therapeutic Substance into Upper GI, Via Natural or Artificial Opening Endoscopic (ICD-10-PCS; principal; 2017-12-01 14:30)
DX: K31.811 Angiodysplasia of stomach and duodenum with bleeding (principal); C22.0 Liver cell carcinoma; K76.6 Portal hypertension; K74.60 Unspecified cirrhosis of liver; B19.20 Unspecified viral hepatitis C without hepatic coma; D64.9 Anemia, unspecified; I25.10 Atherosclerotic heart disease of native coronary artery without angina pectoris; E78.5 Hyperlipidemia, unspecified; I85.10 Secondary esophageal varices without bleeding; I86.4 Gastric varices; K21.0 Gastro-esophageal reflux disease with esophagitis; K31.89 Other diseases of stomach and duodenum

== ENCOUNTER 2018-01-22 18:22 | Inpatient (IN) | payer MEDICARE, OTHER ==
[~2018-01-22] VITALS: Ht 170.2 cm; Wt 59.1 kg
[~2018-01-22 18:22] MED LIST changes: +CARAFATE1 G/10 ML PO
[2018-01-22] MEDS ORDERED: HYDROCODON-ACE1 EAC7 PO (18:37)
[2018-01-22 19:53] LABS: APPEARANCE CLEAR (CLEAR); BILIRUBIN 2+ (NEGATIVE); COLOR ORANGE (YELLOW); GLUCOSE NEGATIVE (NEGATIVE); KETONE NEGATIVE (NEGATIVE); NITRITE NEGATIVE (NEGATIVE); PROTEIN NEGATIVE (NEGATIVE)
[2018-01-22 19:55] LABS: BACTERIA FEW /hpf (NONE SEEN); RED CELLS - URINE 0-5 /hpf (0-5); WHITE CELLS - URINE 0-5 /hpf (0-5)
[2018-01-22 20:01] LABS: BASOPHILS 0.4 % (0-2); EOSINOPHILS 3.7 % (0-7); HEMATOCRIT 27.3 % (42.0-54.0); HEMOGLOBIN 8.6 g/dL (13.5-17.5); IMMATURE GRANULOCYTES 0.2 % (0-5); LYMPHOCYTES 44.9 % (15-50); MCHC 31.5 g/dL (31.0-37.0); MCV 82.5 fL (80.0-100.0); MONOCYTES 17.2 % (2-11); NEUTROPHILS 33.6 % (40-80); PLATELET COUNT 97 10x3/uL (130-400); RBC 3.31 10x6/uL (4.20-6.10); RDW 20.6 % (11.5-14.5); WBC 5.4 10x3/uL (4.8-10.8)
[2018-01-22 20:03] LABS: INR 1.28 (0.85-1.17); PROTIME 15.6 SECONDS (11.6-15.0)
[2018-01-22 20:04] LABS: APTT 35.4 SECONDS (22.8-39.4)
[2018-01-22 20:05] LABS: D-DIMER-QUANTITATIVE 1.25 ug/mLFEU (0.20-0.54)
[2018-01-22 20:16] LABS: ALBUMIN 2.1 g/dL (3.4-5.0); ALKALINE PHOSPHATASE 100 U/L (46-116); ALT (SGPT) 51 U/L (10-68); BILIRUBIN - TOTAL 1.71 mg/dL (0.2-1.3); CALC OSMOLALITY 278 mosm/kg (275-300); CHLORIDE - SERUM 110 mmol/L (98-107); CREATININE - SERUM 0.8 mg/dL (0.6-1.3); GLUCOSE 89 mg/dL (74-106); POTASSIUM - SERUM 3.9 mmol/L (3.5-5.1); PROTEIN - SERUM 5.9 g/dL (6.4-8.2); SODIUM 140 mmol/L (136-145); UREA NITROGEN 15 mg/dL (7-18); eGFR NON AFRICAN AMERICAN > 90 mL/min (90-120)
[2018-01-22 20:18] LABS: AMYLASE - SERUM 77 U/L (25-115); CKMB 0.8 U/L (0.0-3.6); CREATINE KINASE 47 UL (21-232); LIPASE 193 U/L (73-393); MAGNESIUM - SERUM 1.8 mg/dL (1.8-2.4); PLATELET ESTIMATE NORMAL
[2018-01-22 20:21] LABS: TROPONIN-I < 0.017 ng/mL (0.000-0.060)
[2018-01-22 21:01] VITALS: BP 154/55
[2018-01-23] VITALS (15 sets, daily range): BP systolic 118–174; BP diastolic 46–78
[2018-01-23 03:00] LABS: HEMATOCRIT 25.1 % (42.0-54.0); HEMOGLOBIN 8.1 g/dL (13.5-17.5)
[2018-01-23 08:33] LABS: HEMATOCRIT 25.4 % (42.0-54.0); HEMOGLOBIN 8.1 g/dL (13.5-17.5)
[2018-01-24] VITALS (9 sets, daily range): BP systolic 147–176; BP diastolic 68–87; Ht 170.2 cm; Wt 59.1 kg
[2018-01-24 07:05] LABS: BASOPHILS 0.3 % (0-2); EOSINOPHILS 4.9 % (0-7); HEMATOCRIT 24.7 % (42.0-54.0); HEMOGLOBIN 7.9 g/dL (13.5-17.5); LYMPHOCYTES 32.3 % (15-50); MCH 26.2 pg (26.0-34.0); MCV 82.1 fL (80.0-100.0); MEAN PLATELET VOLUME 8.6 fL (7.4-10.4); MONOCYTES 12.9 % (2-11); NEUTROPHILS 49.6 % (40-80); RBC 3.01 10x6/uL (4.20-6.10); RDW 20.1 % (11.5-14.5)
[2018-01-24 07:08] LABS: PLATELET COUNT 69 10x3/uL (130-400); WBC 3.5 10x3/uL (4.8-10.8)
[2018-01-24 07:20] LABS: ALKALINE PHOSPHATASE 93 U/L (46-116); ALT (SGPT) 53 U/L (10-68); BILIRUBIN - TOTAL 1.82 mg/dL (0.2-1.3); CALC OSMOLALITY 277 mosm/kg (275-300); CALCIUM 7.1 mg/dL (8.5-10.1); CARBON DIOXIDE 24.5 mmol/L (21.0-32.0); CHLORIDE - SERUM 108 mmol/L (98-107); CREATININE - SERUM 0.9 mg/dL (0.6-1.3); GLUCOSE 94 mg/dL (74-106); POTASSIUM - SERUM 3.6 mmol/L (3.5-5.1); PROTEIN - SERUM 5.5 g/dL (6.4-8.2); SODIUM 140 mmol/L (136-145); eGFR NON AFRICAN AMERICAN > 90 mL/min (90-120)
[2018-01-24 07:21] LABS: UREA NITROGEN 9 mg/dL (7-18)
[2018-01-25 00:30] VITALS: BP 140/64
[2018-01-25 04:30] VITALS: BP 120/57
[2018-01-25 06:42] LABS: BASOPHILS 0.3 % (0-2); EOSINOPHILS 3.4 % (0-7); HEMATOCRIT 25.5 % (42.0-54.0); HEMOGLOBIN 8.1 g/dL (13.5-17.5); LYMPHOCYTES 36.4 % (15-50); MCH 26.1 pg (26.0-34.0); MCHC 31.8 g/dL (31.0-37.0); MCV 82.3 fL (80.0-100.0); MEAN PLATELET VOLUME 8.6 fL (7.4-10.4); MONOCYTES 12.4 % (2-11); NEUTROPHILS 47.5 % (40-80); PLATELET COUNT 73 10x3/uL (130-400); RDW 20.8 % (11.5-14.5); WBC 3.8 10x3/uL (4.8-10.8)
[2018-01-25 06:58] LABS: ALKALINE PHOSPHATASE 80 U/L (46-116); ALT (SGPT) 50 U/L (10-68); CALC OSMOLALITY 281 mosm/kg (275-300); CALCIUM 7.2 mg/dL (8.5-10.1); CHLORIDE - SERUM 110 mmol/L (98-107); CREATININE - SERUM 0.8 mg/dL (0.6-1.3); GLUCOSE 78 mg/dL (74-106); POTASSIUM - SERUM 3.4 mmol/L (3.5-5.1); PROTEIN - SERUM 5.3 g/dL (6.4-8.2); SODIUM 143 mmol/L (136-145); UREA NITROGEN 8 mg/dL (7-18); eGFR NON AFRICAN AMERICAN > 90 mL/min (90-120)
[2018-01-25 08:13] VITALS: BP 148/73
[2018-01-25 14:00] VITALS: BP 143/68
[2018-01-25 16:25] VITALS: BP 142/75
== END 2018-01-25 18:45 | disposition home or self-care (01) | DRG 436 ==
LOC: D.ER 18:22 → D.MS 21:20 → D.EDHOLD 21:20 → D.ICU 01-23 22:36 → D.EDHOLD 01-23 23:03 → D.MS 01-24 10:38
PROVIDERS: Family Medicine; Internal Medicine Nephrology
DX: C22.0 Liver cell carcinoma (principal); K76.6 Portal hypertension; I85.10 Secondary esophageal varices without bleeding; K70.30 Alcoholic cirrhosis of liver without ascites; I86.4 Gastric varices; B19.20 Unspecified viral hepatitis C without hepatic coma; K21.0 Gastro-esophageal reflux disease with esophagitis; Q27.33 Arteriovenous malformation of digestive system vessel; D69.6 Thrombocytopenia, unspecified; I27.20 Pulmonary hypertension, unspecified; F17.210 Nicotine dependence, cigarettes, uncomplicated; R53.1 Weakness; I25.2 Old myocardial infarction

== ENCOUNTER 2018-02-26 09:09 | Inpatient (IN) | payer MEDICARE, OTHER ==
[~2018-02-26] VITALS: Ht 170.2 cm; Wt 86.6 kg
[2018-02-26] VITALS (8 sets, daily range): BP systolic 114–157; BP diastolic 58–84; BMI 20.4
--- NOTE | ~2018-02-26 | EC ---
PATIENT:JEREMY BURRIS DATE OF SERVICE: 02/26/18 SEX: M MEDICAL RECORD: [id number] DATE OF : 55 LOCATION:[facility] AGE OF PATIENT: 63 ADMISSION DATE: 02/26/18 REFERRING PHYSICIAN: INTERPRETING PHYSICIAN: OJ RUBI MD ECHOCARDIOGRAM REPORT ECHO CHARGES 5 ECHO LIMITED Date: 03/03/18 CLINICAL DIAGNOSIS: TACHYCARDIA ECHOCARDIOGRAPHIC MEASUREMENTS (adult normal given) AC root (d.<3.7cm) 2.9 cm LV Septum d (<1.2 cm> 1.6 cm Valve Excursion 0.7 cm LV Septum (systole) 1.6 cm Left Atria (s.<4.0cm> 3.8 cm LVPW d(<1.2cm) 1.4 cm RV (d.<2.3cm) 4.6 cm LVPW (sytole) 1.5 cm LV diastole(<5.6CM) 4.6 cm MV E-F(>70mm/sec) cm LV systole 3.7 cm LVOT Diameter 1.4 cm MV exc.(>10mm) cm Est.ejection fraction (50-75%) % DOPPLER: LVIT cm/sec A 98.0 cm/sec E 136 cm/sec LA cm/sec RVSP 49 mmHg LVOT 221 cm/sec AOP1/2T m/s Asc. Ao 239 cm/sec RVOT 85 cm/sec RA cm/sec PA 85 cm/sec AV Gradient Peak 22.81mmHg AV Mean 15.10mmHg AV Area 1.2 cm MV Gradient Peak 8.52 mmHg MV Mean 3.72 mmHg MV Area cm COMMENTS: Marina Porter: 2 BRUNO BENITO Councilperson: 4 Dr. Rubi TAPE# PACS Pericardial Effusion N DATE OF SERVICE: PROCEDURE: Limited transthoracic echocardiogram. The patient underwent a limited transthoracic echocardiogram for function. FINDINGS: 1. Patient's left ventricular function is 50%. 2. Mild global hypokinesis. 3. Left atrium is normal. ECHOCARDIOGRAM REPORT [id number] JEREMY BURRIS 4. Right ventricle is dilated. 5. The patient has what appears to be an atrial dysrhythmia at times, making inflow characteristics difficult, but the ones that we did see appear to show an evidence of diastolic dysfunction. 6. Lateral wall appears to be hypokinetic to mildly dyskinetic. 7. Ejection fraction, as I said, is mildly decreased. TRANSINT:[id number] Voice Confirmation ID: [id number] DOCUMENT ID: [id number] OJ RUBI MD at 0738 CC: [id number] DICTATION DATE: 03/08/18917 DOOR TRIMMER: 03/08/18933 DIS IN 03/06/18 [facility] [address] [place] [address]
--- NOTE | ~2018-02-26 | CN ---
PATIENT NAME:JEREMY BURRIS MEDICAL RECORD: [id number] : 55 LOCATION:D. D.2118 ADMIT DATE: 02/26/18 ACCOUNT: [id number] CONSULTING PHYSICIAN: JAVON MCCARTY MD REFERRING PHYSICIAN: MARTIN GOEL MD DATE OF CONSULTATION: 02/26/2018 CARDIOLOGY CONSULTATION DIAGNOSES: 1. Chest pain compatible with angina. 2. Anemia. 3. Lung CA. 4. Esophageal varices. 5. Abnormal ECG. HISTORY OF PRESENT ILLNESS: This is a gentleman who is under the care Dr. Goel for lung CA, just started Opdivo, began having chest pain, presents to the Emergency Room. His EKG shows T-wave inversions laterally. His troponin is elevated. He currently has a systolic blood pressure in the 100-110 range, heart rate in the 70s. He has a hemoglobin of 8.2. He is pain free at this time. Dr. Goel thinks that this is secondary to the Opdivo and very well might be, but no doubt he has underlying hemodynamically significant coronary artery disease. The problem is with the bleeding problem, varices and the hemoglobin being low, we cannot do cardiac catheterization as we cannot anticoagulate him. We will put him on low dose nitrates at this point. Hopefully, this will resolve his chest pain. If he somehow becomes stable in the future from esophageal varices and bleeding standpoint, we could consider cardiac catheterization at that time, otherwise it is only medical management. TRANSINT:[id number] Voice Confirmation ID: [id number] DOCUMENT ID: [id number] JAVON MCCARTY MD at 1950 CC: [id number] DICTATION DATE: 02/26/18 1255 TRACK LAMINATING MACHINE TENDER: 02/26/18 1310 ADM IN [place] [id number] [place] [address]
--- NOTE | ~2018-02-26 | EC ---
PATIENT:JEREMY BURRIS DATE OF SERVICE: 02/26/18 SEX: M MEDICAL RECORD: [id number] DATE OF : 55 LOCATION[facility] D230 AGE OF PATIENT: 63 ADMISSION DATE: 02/26/18 REFERRING PHYSICIAN: INTERPRETING PHYSICIAN: BEN VENTURA MD ECHOCARDIOGRAM REPORT ECHO CHARGES 4 ECHO COMPLETE Date: 02/26/18 CLINICAL DIAGNOSIS: SOB ECHOCARDIOGRAPHIC MEASUREMENTS (adult normal given) AC root (d.<3.7cm) 2.9 cm LV Septum d (<1.2 cm> 1.6 cm Valve Excursion 0.7 cm LV Septum (systole) 1.6 cm Left Atria (s.<4.0cm> 3.9 cm LVPW d(<1.2cm) 1.4 cm RV (d.<2.3cm) 2.1 cm LVPW (sytole) 1.5 cm LV diastole(<5.6CM) 4.2 cm MV E-F(>70mm/sec) cm LV systole 4.0 cm LVOT Diameter 1.7 cm MV exc.(>10mm) cm Est.ejection fraction (50-75%) % DOPPLER: LVIT cm/sec A 69 cm/sec E 162 cm/sec LA cm/sec RVSP 41.3 mmHg LVOT 113 cm/sec AOP1/2T m/s Asc. Ao 313 cm/sec RVOT 85 cm/sec RA cm/sec PA 85 cm/sec AV Gradient Peak 39.1 mmHg AV Mean 18.6 mmHg AV Area 1.0 cm MV Gradient Peak 16.3 mmHg MV Mean 6.4 mmHg MV Area cm COMMENTS: Chlorination Operator: Dwain [facility] Plant Etiologist: 1 Dr. Sheppard TAPE# PACS Pericardial Effusion N DATE OF SERVICE: Adequate 2D echo, color flow, spectral Doppler, and M-Mode Mild LVH. LV internal dimensions are normal. Wall motion is normal. EF is greater than 55%. Aortic valve is calcified with a peak velocity of 40 mmHg, putting this in the moderate range. Mild AI by color imaging. Left atrium is normal 3.9 cm. Mitral valve shows no prolapse. Mild MR. Right-sided chambers are grossly normal. Mild TR. ECHOCARDIOGRAM REPORT [id number] JEREMY BURRIS TRANSINT:[id number] Voice Confirmation ID: [id number] DOCUMENT ID: [id number] BEN VENTURA MD at 0843 CC: [id number] DICTATION DATE: 02/28/18954 DERIVATIVES TRADER: 02/28/18 1129 ADM IN [place] [id number] [place] [id number]
[~2018-02-26 09:09] MED LIST changes: +HYDROCODON-ACE1 EAC7 PO
[2018-02-26 09:56] LABS: HEMATOCRIT 25.7 % (42.0-54.0); HEMOGLOBIN 8.4 g/dL (13.5-17.5); LYMPHOCYTES 40.1 % (15-50); MCH 24.9 pg (26.0-34.0); MCHC 32.7 g/dL (31.0-37.0); MEAN PLATELET VOLUME 8.6 fL (7.4-10.4); NEUTROPHILS 38.2 % (40-80); PLATELET COUNT 85 10x3/uL (130-400); RBC 3.38 10x6/uL (4.20-6.10); RDW 20.7 % (11.5-14.5); WBC 4.1 10x3/uL (4.8-10.8)
[2018-02-26] MEDS ORDERED: STERAPRED 5MG 125 MG PO (10:07)
[2018-02-26] MEDS ORDERED: FUROSEMIDE20 MG PO (10:08)
[2018-02-26] MEDS ORDERED: ALDACTONE25 MG PO (10:08)
[2018-02-26 10:22] LABS: ALKALINE PHOSPHATASE 123 U/L (46-116); ALT (SGPT) 77 U/L (10-68); BILIRUBIN - TOTAL 2.67 mg/dL (0.2-1.3); CALC OSMOLALITY 275 mosm/kg (275-300); CALCIUM 7.4 mg/dL (8.5-10.1); CARBON DIOXIDE 21.9 mmol/L (21.0-32.0); CHLORIDE - SERUM 109 mmol/L (98-107); CREATININE - SERUM 0.9 mg/dL (0.6-1.3); GLUCOSE 85 mg/dL (74-106); POTASSIUM - SERUM 3.6 mmol/L (3.5-5.1); PROTEIN - SERUM 5.9 g/dL (6.4-8.2); SODIUM 139 mmol/L (136-145); UREA NITROGEN 11 mg/dL (7-18); eGFR NON AFRICAN AMERICAN > 90 mL/min (90-120)
[2018-02-26 10:37] LABS: AMYLASE - SERUM 164 U/L (25-115); CKMB 5.4 U/L (0.0-3.6); CREATINE KINASE 114 UL (21-232); LIPASE 229 U/L (73-393); PRO BNP 2277 pg/mL (0-125)
[2018-02-26 10:40] LABS: TROPONIN-I 1.478 ng/mL (0.000-0.060)
[2018-02-26 10:44] LABS: APPEARANCE CLEAR (CLEAR); BILIRUBIN NEGATIVE (NEGATIVE); COLOR YELLOW (YELLOW); GLUCOSE NEGATIVE (NEGATIVE); KETONE NEGATIVE (NEGATIVE); NITRITE NEGATIVE (NEGATIVE); PROTEIN NEGATIVE (NEGATIVE)
[2018-02-26 10:45] LABS: BACTERIA FEW /hpf (NONE SEEN); EPITHELIAL CELLS RARE /hpf (0-5); WHITE CELLS - URINE RARE /hpf (0-5)
[2018-02-26 10:46] LABS: MUCUS <1+ /lpf (NONE SEEN)
[2018-02-26 13:42] LABS: CKMB 7.6 U/L (0.0-3.6); CREATINE KINASE 135 UL (21-232)
[2018-02-26 13:43] LABS: TROPONIN-I 2.048 ng/mL (0.000-0.060)
[2018-02-26 15:58] LABS: TROPONIN-I 1.978 ng/mL (0.000-0.060)
[2018-02-26] MEDS ORDERED: PREDNISONE5 MG PO (17:36)
[2018-02-26 23:07] LABS: CKMB 6.4 U/L (0.0-3.6); CREATINE KINASE 119 UL (21-232)
[2018-02-26 23:18] LABS: TROPONIN-I 1.567 ng/mL (0.000-0.060)
[2018-02-27 04:00] VITALS: BP 151/74
[2018-02-27 04:19] LABS: BASOPHILS 0 % (0-2); EOSINOPHILS 0 % (0-7); IMMATURE GRANULOCYTES 0.2 % (0-5); LYMPHOCYTES 26.5 % (15-50); MCH 25.6 pg (26.0-34.0); MCHC 32.3 g/dL (31.0-37.0); MEAN PLATELET VOLUME 9.5 fL (7.4-10.4); MONOCYTES 5.7 % (2-11); NEUTROPHILS 67.6 % (40-80); PLATELET COUNT 78 10x3/uL (130-400); RDW 20.7 % (11.5-14.5)
[2018-02-27 04:23] LABS: HEMATOCRIT 33.1 % (42.0-54.0); HEMOGLOBIN 10.7 g/dL (13.5-17.5); MCV 79.2 fL (80.0-100.0); RBC 4.18 10x6/uL (4.20-6.10); WBC 5.2 10x3/uL (4.8-10.8)
[2018-02-27 04:31] LABS: ALKALINE PHOSPHATASE 130 U/L (46-116); ALT (SGPT) 68 U/L (10-68); CALCIUM 7.6 mg/dL (8.5-10.1); CARBON DIOXIDE 21.3 mmol/L (21.0-32.0); CHLORIDE - SERUM 107 mmol/L (98-107); CKMB 6.5 U/L (0.0-3.6); CREATINE KINASE 142 UL (21-232); CREATININE - SERUM 1.1 mg/dL (0.6-1.3); POTASSIUM - SERUM 4.1 mmol/L (3.5-5.1); SODIUM 138 mmol/L (136-145); UREA NITROGEN 12 mg/dL (7-18); eGFR NON AFRICAN AMERICAN 72 mL/min (90-120)
[2018-02-27 04:32] LABS: CALC OSMOLALITY 278 mosm/kg (275-300); GLUCOSE 151 mg/dL (74-106); TROPONIN-I 1.585 ng/mL (0.000-0.060)
[2018-02-27 08:07] VITALS: BP 163/78
[2018-02-27 10:46] VITALS: BMI 20.3
[2018-02-27 10:54] VITALS: BP 148/75
[2018-02-27 15:11] VITALS: BP 136/76
[2018-02-27 20:00] VITALS: BP 145/73
[2018-02-28] VITALS: BP 126/62
[2018-02-28 04:00] VITALS: BP 122/83
[2018-02-28 06:00] VITALS: BP 155/80
[2018-02-28 20:00] VITALS: BP 119/77
[2018-03-01 00:07] VITALS: BP 153/73
[2018-03-01 04:00] VITALS: BP 154/55
[2018-03-01 05:22] LABS: BASOPHILS 0 % (0-2); EOSINOPHILS 0 % (0-7); HEMATOCRIT 30.3 % (42.0-54.0); HEMOGLOBIN 9.6 g/dL (13.5-17.5); IMMATURE GRANULOCYTES 0.3 % (0-5); LYMPHOCYTES 10.2 % (15-50); MCH 25.2 pg (26.0-34.0); MCHC 31.7 g/dL (31.0-37.0); MCV 79.5 fL (80.0-100.0); MEAN PLATELET VOLUME 9.7 fL (7.4-10.4); MONOCYTES 9.9 % (2-11); NEUTROPHILS 79.6 % (40-80); PLATELET COUNT 67 10x3/uL (130-400); RBC 3.81 10x6/uL (4.20-6.10); RDW 21.6 % (11.5-14.5); WBC 8.9 10x3/uL (4.8-10.8)
[2018-03-01 05:32] LABS: ALBUMIN 1.8 g/dL (3.4-5.0); ALKALINE PHOSPHATASE 139 U/L (46-116); ALT (SGPT) 60 U/L (10-68); BILIRUBIN - TOTAL 2.27 mg/dL (0.2-1.3); CALC OSMOLALITY 285 mosm/kg (275-300); CALCIUM 7.2 mg/dL (8.5-10.1); CARBON DIOXIDE 23.9 mmol/L (21.0-32.0); CHLORIDE - SERUM 110 mmol/L (98-107); CREATININE - SERUM 0.9 mg/dL (0.6-1.3); GLUCOSE 192 mg/dL (74-106); POTASSIUM - SERUM 3.6 mmol/L (3.5-5.1); PROTEIN - SERUM 5.2 g/dL (6.4-8.2); SODIUM 141 mmol/L (136-145); UREA NITROGEN 13 mg/dL (7-18); eGFR NON AFRICAN AMERICAN > 90 mL/min (90-120)
[2018-03-01 08:31] VITALS: BP 152/63
[2018-03-01] MEDS ORDERED: PROTONIX40 MG PO (11:05)
[2018-03-01 11:13] VITALS: BP 143/68
[2018-03-01 14:53] VITALS: BP 137/69
[2018-03-01 18:11] VITALS: Ht 170.2 cm; Wt 86.6 kg
[2018-03-01 22:07] VITALS: BP 150/74
[2018-03-02 05:39] LABS: BASOPHILS 0.1 % (0-2); EOSINOPHILS 0 % (0-7); HEMATOCRIT 31.3 % (42.0-54.0); HEMOGLOBIN 10.1 g/dL (13.5-17.5); IMMATURE GRANULOCYTES 0.2 % (0-5); LYMPHOCYTES 13.6 % (15-50); MCH 25.5 pg (26.0-34.0); MCHC 32.3 g/dL (31.0-37.0); MONOCYTES 8.3 % (2-11); NEUTROPHILS 77.8 % (40-80); PLATELET COUNT 77 10x3/uL (130-400); RBC 3.96 10x6/uL (4.20-6.10); RDW 22.3 % (11.5-14.5); WBC 9.4 10x3/uL (4.8-10.8)
[2018-03-02 05:47] LABS: CALCIUM 7.5 mg/dL (8.5-10.1); CHLORIDE - SERUM 108 mmol/L (98-107); CREATININE - SERUM 0.9 mg/dL (0.6-1.3); SODIUM 139 mmol/L (136-145); UREA NITROGEN 15 mg/dL (7-18); eGFR NON AFRICAN AMERICAN > 90 mL/min (90-120)
[2018-03-02 05:51] LABS: CALC OSMOLALITY 279 mosm/kg (275-300); GLUCOSE 119 mg/dL (74-106); POTASSIUM - SERUM 4.2 mmol/L (3.5-5.1)
[2018-03-02 06:21] VITALS: BP 141/72
[2018-03-02 07:48] VITALS: BP 144/72
[2018-03-02 12:08] VITALS: BP 124/67
[2018-03-02 15:45] VITALS: BP 134/69
[2018-03-02 21:20] VITALS: BP 137/72
[2018-03-02 23:15] VITALS: BP 140/79
[2018-03-02 23:54] LABS: HEMATOCRIT 35.4 % (42.0-54.0); HEMOGLOBIN 11.3 g/dL (13.5-17.5)
[2018-03-03] VITALS (66 sets, daily range): BP systolic 65–166; BP diastolic 52–103
[2018-03-03 00:07] LABS: APPEARANCE CLEAR (CLEAR); BILIRUBIN NEGATIVE (NEGATIVE); COLOR YELLOW (YELLOW); GLUCOSE NEGATIVE (NEGATIVE); KETONE NEGATIVE (NEGATIVE); NITRITE NEGATIVE (NEGATIVE); PROTEIN NEGATIVE (NEGATIVE); UROBILINOGEN NORMAL (NORMAL)
[2018-03-03 00:08] LABS: BACTERIA FEW /hpf (NONE SEEN); EPITHELIAL CELLS 0-5 /hpf (0-5); RED CELLS - URINE NONE SEEN /hpf (0-5); WHITE CELLS - URINE 0-5 /hpf (0-5)
[2018-03-03 00:33] LABS: ALBUMIN 2.1 g/dL (3.4-5.0); BILIRUBIN - TOTAL 3.84 mg/dL (0.2-1.3); CALCIUM 7.4 mg/dL (8.5-10.1); CREATININE - SERUM 1.1 mg/dL (0.6-1.3); POTASSIUM - SERUM 4.4 mmol/L (3.5-5.1); PROTEIN - SERUM 5.8 g/dL (6.4-8.2)
[2018-03-03 00:35] LABS: ANION GAP 23.5 mmol/L (8-16); CARBON DIOXIDE 15.9 mmol/L (21.0-32.0)
[2018-03-03 00:36] LABS: TROPONIN-I 0.441 ng/mL (0.000-0.060)
[2018-03-03 03:51] LABS: HEMATOCRIT 41.4 % (42.0-54.0); HEMOGLOBIN 13.1 g/dL (13.5-17.5); MCH 26.4 pg (26.0-34.0); MCHC 31.6 g/dL (31.0-37.0); MCV 83.3 fL (80.0-100.0); MEAN PLATELET VOLUME 9.9 fL (7.4-10.4); PLATELET COUNT 98 10x3/uL (130-400); RBC 4.97 10x6/uL (4.20-6.10); RDW 22.6 % (11.5-14.5); WBC 23.3 10x3/uL (4.8-10.8)
[2018-03-03 04:01] LABS: ANION GAP 23.2 mmol/L (8-16); CALCIUM 7.2 mg/dL (8.5-10.1); CARBON DIOXIDE 17.7 mmol/L (21.0-32.0); POTASSIUM - SERUM 4.9 mmol/L (3.5-5.1)
[2018-03-03 04:03] LABS: CREATININE - SERUM 1.7 mg/dL (0.6-1.3)
[2018-03-03 04:44] LABS: LYMPHOCYTES 16 % (15-50); MONOCYTES 1 % (2-11); NEUTROPHILS 78 % (40-80); PLATELET ESTIMATE DECREASED; SMUDGE CELLS 1+
[2018-03-03 21:31] LABS: BASOPHILS 0.1 % (0-2); EOSINOPHILS 0 % (0-7); HEMATOCRIT 35.5 % (42.0-54.0); IMMATURE GRANULOCYTES 0.5 % (0-5); LYMPHOCYTES 11.4 % (15-50); MCH 25.3 pg (26.0-34.0); MCV 81.8 fL (80.0-100.0); MONOCYTES 7.3 % (2-11); NEUTROPHILS 80.7 % (40-80); RBC 4.34 10x6/uL (4.20-6.10); RDW 22.6 % (11.5-14.5)
[2018-03-03 21:39] LABS: PLATELET COUNT 64 10x3/uL (130-400); WBC 17.3 10x3/uL (4.8-10.8)
[2018-03-03 21:45] LABS: APTT 46.7 SECONDS (22.8-39.4); INR 2.96 (0.85-1.17); PROTIME 30.1 SECONDS (11.6-15.0)
[2018-03-04] VITALS (86 sets, daily range): BP systolic 67–121; BP diastolic 47–79
[2018-03-04 04:54] LABS: BASOPHILS 0.1 % (0-2); EOSINOPHILS 0 % (0-7); HEMATOCRIT 33.9 % (42.0-54.0); HEMOGLOBIN 10.6 g/dL (13.5-17.5); IMMATURE GRANULOCYTES 0.5 % (0-5); LYMPHOCYTES 11.4 % (15-50); MCH 25.5 pg (26.0-34.0); MCHC 31.3 g/dL (31.0-37.0); MCV 81.7 fL (80.0-100.0); MONOCYTES 7.1 % (2-11); NEUTROPHILS 80.9 % (40-80); PLATELET COUNT 58 10x3/uL (130-400); RBC 4.15 10x6/uL (4.20-6.10); RDW 22.7 % (11.5-14.5); WBC 16.1 10x3/uL (4.8-10.8)
[2018-03-04 05:03] LABS: APTT 46.2 SECONDS (22.8-39.4); INR 3.26 (0.85-1.17); PROTIME 32.4 SECONDS (11.6-15.0)
[2018-03-04 06:54] LABS: CREATININE - SERUM 2.9 mg/dL (0.6-1.3)
[2018-03-04 06:56] LABS: ANION GAP 20.4 mmol/L (8-16); POTASSIUM - SERUM 6.4 mmol/L (3.5-5.1)
[2018-03-04 06:57] LABS: CALCIUM 6.4 mg/dL (8.5-10.1)
[2018-03-04 18:50] LABS: BASOPHILS 0.1 % (0-2); EOSINOPHILS 0 % (0-7); HEMATOCRIT 30.8 % (42.0-54.0); HEMOGLOBIN 9.5 g/dL (13.5-17.5); IMMATURE GRANULOCYTES 0.9 % (0-5); LYMPHOCYTES 9.3 % (15-50); MCH 25.1 pg (26.0-34.0); MCHC 30.8 g/dL (31.0-37.0); MCV 81.3 fL (80.0-100.0); MONOCYTES 7.1 % (2-11); NEUTROPHILS 82.6 % (40-80); PLATELET COUNT 67 10x3/uL (130-400); RBC 3.79 10x6/uL (4.20-6.10); RDW 22.4 % (11.5-14.5); WBC 16.1 10x3/uL (4.8-10.8)
[2018-03-04 20:15] LABS: INR 2.38 (0.85-1.17); PROTIME 25.3 SECONDS (11.6-15.0)
[2018-03-05] VITALS (64 sets, daily range): BP systolic 78–153; BP diastolic 56–763
[2018-03-05 06:29] LABS: BASOPHILS 0.1 % (0-2); EOSINOPHILS 0 % (0-7); HEMATOCRIT 34.6 % (42.0-54.0); HEMOGLOBIN 10.8 g/dL (13.5-17.5); IMMATURE GRANULOCYTES 1.3 % (0-5); LYMPHOCYTES 8.2 % (15-50); MCH 25.1 pg (26.0-34.0); MCHC 31.2 g/dL (31.0-37.0); MCV 80.5 fL (80.0-100.0); MONOCYTES 7.9 % (2-11); NEUTROPHILS 82.5 % (40-80); PLATELET COUNT 57 10x3/uL (130-400); RDW 22.6 % (11.5-14.5); WBC 18.9 10x3/uL (4.8-10.8)
[2018-03-05 06:31] LABS: APTT 38.4 SECONDS (22.8-39.4); INR 2.48 (0.85-1.17); PROTIME 26.2 SECONDS (11.6-15.0)
[2018-03-05 07:14] LABS: ALBUMIN 1.7 g/dL (3.4-5.0); BILIRUBIN - TOTAL 5.95 mg/dL (0.2-1.3); CREATININE - SERUM 2.7 mg/dL (0.6-1.3); MAGNESIUM - SERUM 2.2 mg/dL (1.8-2.4); PHOSPHOROUS 7.6 mg/dL (2.5-4.9); PROTEIN - SERUM 4.7 g/dL (6.4-8.2); VANCOMYCIN - TROUGH 12.8 ug/mL (10.0-20.0)
[2018-03-05 07:50] LABS: CALCIUM 6.3 mg/dL (8.5-10.1)
[2018-03-05 08:04] LABS: TROPONIN-I 296.73 ng/mL (0.000-0.060)
[2018-03-05 10:34] LABS: BASOPHILS 0.1 % (0-2); EOSINOPHILS 0.1 % (0-7); HEMATOCRIT 35.6 % (42.0-54.0); HEMOGLOBIN 11.3 g/dL (13.5-17.5); IMMATURE GRANULOCYTES 1.7 % (0-5); LYMPHOCYTES 8.6 % (15-50); MCH 25.3 pg (26.0-34.0); MCHC 31.7 g/dL (31.0-37.0); MCV 79.6 fL (80.0-100.0); MONOCYTES 7.3 % (2-11); NEUTROPHILS 82.2 % (40-80); PLATELET COUNT 54 10x3/uL (130-400); RBC 4.47 10x6/uL (4.20-6.10); RDW 22.5 % (11.5-14.5); WBC 19.5 10x3/uL (4.8-10.8)
[2018-03-05 18:50] LABS: BASOPHILS 0.1 % (0-2); EOSINOPHILS 0 % (0-7); HEMATOCRIT 36.7 % (42.0-54.0); IMMATURE GRANULOCYTES 1.7 % (0-5); LYMPHOCYTES 7.3 % (15-50); MCH 25.8 pg (26.0-34.0); MCHC 32.7 g/dL (31.0-37.0); MCV 78.9 fL (80.0-100.0); MONOCYTES 9.8 % (2-11); NEUTROPHILS 81.1 % (40-80); PLATELET COUNT 50 10x3/uL (130-400); RBC 4.65 10x6/uL (4.20-6.10); RDW 22.8 % (11.5-14.5); WBC 19.9 10x3/uL (4.8-10.8)
[2018-03-06] VITALS (83 sets, daily range): BP systolic 00–153; BP diastolic 00–90
[2018-03-06 04:31] LABS: BASOPHILS 0.1 % (0-2); EOSINOPHILS 0 % (0-7); HEMATOCRIT 35.4 % (42.0-54.0); HEMOGLOBIN 11.2 g/dL (13.5-17.5); IMMATURE GRANULOCYTES 1.5 % (0-5); LYMPHOCYTES 8.7 % (15-50); MCH 25.3 pg (26.0-34.0); MCHC 31.6 g/dL (31.0-37.0); MCV 80.1 fL (80.0-100.0); MONOCYTES 7.9 % (2-11); NEUTROPHILS 81.8 % (40-80); RBC 4.42 10x6/uL (4.20-6.10); RDW 22.8 % (11.5-14.5); WBC 20.7 10x3/uL (4.8-10.8)
[2018-03-06 04:32] LABS: PLATELET COUNT 33 10x3/uL (130-400)
[2018-03-06 04:58] LABS: ALBUMIN 1.5 g/dL (3.4-5.0); BILIRUBIN - TOTAL 5.82 mg/dL (0.2-1.3); CARBON DIOXIDE 23.6 mmol/L (21.0-32.0); MAGNESIUM - SERUM 2.4 mg/dL (1.8-2.4); PHOSPHOROUS 8.4 mg/dL (2.5-4.9); PROTEIN - SERUM 4.3 g/dL (6.4-8.2); VANCOMYCIN - RANDOM 8.9 ug/mL (10.0-20.0)
[2018-03-06 04:59] LABS: CREATININE - SERUM 3.6 mg/dL (0.6-1.3)
[2018-03-06 05:00] LABS: ANION GAP 22.4 mmol/L (8-16); CALCIUM 5.9 mg/dL (8.5-10.1)
[2018-03-06 05:06] LABS: INR 3.14 (0.85-1.17); PROTIME 31.5 SECONDS (11.6-15.0)
[2018-03-06 11:01] LABS: BASOPHILS 0.1 % (0-2); EOSINOPHILS 0 % (0-7); HEMATOCRIT 34.9 % (42.0-54.0); HEMOGLOBIN 10.9 g/dL (13.5-17.5); LYMPHOCYTES 8.6 % (15-50); MCH 25.2 pg (26.0-34.0); MCHC 31.2 g/dL (31.0-37.0); MCV 80.6 fL (80.0-100.0); MONOCYTES 8.5 % (2-11); NEUTROPHILS 81.8 % (40-80); PLATELET COUNT 103 10x3/uL (130-400); RBC 4.33 10x6/uL (4.20-6.10); RDW 22.9 % (11.5-14.5); WBC 24.7 10x3/uL (4.8-10.8)
[2018-03-06 18:20] LABS: BASOPHILS 0.2 % (0-2); EOSINOPHILS 0 % (0-7); HEMOGLOBIN 10.6 g/dL (13.5-17.5); IMMATURE GRANULOCYTES 0.9 % (0-5); MCH 25.1 pg (26.0-34.0); MCHC 31.2 g/dL (31.0-37.0); MCV 80.6 fL (80.0-100.0); MONOCYTES 8.2 % (2-11); NEUTROPHILS 84.7 % (40-80); PLATELET COUNT 86 10x3/uL (130-400); RBC 4.22 10x6/uL (4.20-6.10); RDW 22.9 % (11.5-14.5); WBC 23.4 10x3/uL (4.8-10.8)
== END 2018-03-06 20:50 ==
LOC: D.ER 09:09 → D.M2 15:05 → D.ICU 15:05 → D.SDCHOLD 03-01 16:38 → D.M2 03-01 16:40 → D.ICU 03-02 23:24
PROVIDERS: Family Medicine; Internal Medicine Cardiovascular Disease; Internal Medicine Gastroenterology; Internal Medicine Hematology & Oncology; Internal Medicine Nephrology; Internal Medicine Pulmonary Disease
PROC: 0JH63XZ Insertion of Tunneled Vascular Access Device into Chest Subcutaneous Tissue and Fascia, Percutaneous Approach (ICD-10-PCS; 2018-03-02)
PROC: 02HV33Z Insertion of Infusion Device into Superior Vena Cava, Percutaneous Approach (ICD-10-PCS; 2018-03-02)
PROC: B5181ZA Fluoroscopy of Superior Vena Cava using Low Osmolar Contrast, Guidance (ICD-10-PCS; 2018-03-02)
PROC: 0BH17EZ Insertion of Endotracheal Airway into Trachea, Via Natural or Artificial Opening (ICD-10-PCS; principal; 2018-03-03)
PROC: 5A1945Z Respiratory Ventilation, 24-96 Consecutive Hours (ICD-10-PCS; 2018-03-03)
PROC: 05HC33Z Insertion of Infusion Device into Left Basilic Vein, Percutaneous Approach (ICD-10-PCS; 2018-03-04)
PROC: B54NZZA Ultrasonography of Left Upper Extremity Veins, Guidance (ICD-10-PCS; 2018-03-04)
DX: I21.9 Acute myocardial infarction, unspecified (principal); E43 Unspecified severe protein-calorie malnutrition; A41.9 Sepsis, unspecified organism; N17.0 Acute kidney failure with tubular necrosis; J96.02 Acute respiratory failure with hypercapnia; J96.01 Acute respiratory failure with hypoxia; R65.21 Severe sepsis with septic shock; J15.6 Pneumonia due to other Gram-negative bacteria; I50.33 Acute on chronic diastolic (congestive) heart failure; I85.00 Esophageal varices without bleeding; C22.0 Liver cell carcinoma; D62 Acute posthemorrhagic anemia; K92.2 Gastrointestinal hemorrhage, unspecified; I11.0 Hypertensive heart disease with heart failure; R57.0 Cardiogenic shock; D50.9 Iron deficiency anemia, unspecified; I86.4 Gastric varices; R94.31 Abnormal electrocardiogram [ECG] [EKG]; D69.6 Thrombocytopenia, unspecified; I25.10 Atherosclerotic heart disease of native coronary artery without angina pectoris; Z68.20 Body mass index [BMI] 20.0-20.9, adult; E78.5 Hyperlipidemia, unspecified; K74.60 Unspecified cirrhosis of liver; B19.20 Unspecified viral hepatitis C without hepatic coma; I27.20 Pulmonary hypertension, unspecified; J44.9 Chronic obstructive pulmonary disease, unspecified; I08.3 Combined rheumatic disorders of mitral, aortic and tricuspid valves